=== PATIENT | female | born 1935 | race Caucasian/White ===

== ENCOUNTER → 2017-01-13 | Outpatient (CLI) | payer MEDICARE, OTHER | END | disposition home or self-care (01) | LOC: GMA 16:54 | PROVIDERS: ATTEND Nurse Practitioner Family | DX: N30.00 Acute cystitis without hematuria (principal) ==

== ENCOUNTER → 2019-05-24 | Outpatient (CLI) | payer MEDICARE, OTHER | LOC: LAB.O 12:17 | PROVIDERS: ATTEND Surgery | DX: D17.39 Benign lipomatous neoplasm of skin and subcutaneous tissue of other sites (principal) ==

== ENCOUNTER 2020-08-08 09:56 | Outpatient (CLI) | payer MEDICARE, OTHER | END 2020-08-08 12:26 | disposition home or self-care (01) | LOC: INFRM 09:56 | PROVIDERS: ATTEND Family Medicine | DX: U07.1 COVID-19 (principal); I10 Essential (primary) hypertension; Z23 Encounter for immunization ==